=== PATIENT | female | born 1975 | race Caucasian/White ===

== ENCOUNTER 2016-10-07 11:39 | Emergency (ER) | payer OTHER ==
[2016-10-07 12:13] VITALS: BP 164/105; PULSE 82; RESP 17; TEMP 98.7
--- NOTE | 2016-10-07 12:28 | ED ---
ENT HPI - General Chief complaint: ENT Stated complaint: ear infection Time Seen by Provider: 10/07/16 12:16 Source: patient, RN notes reviewed Mode of arrival: ambulatory Limitations: no limitations - History of Present Illness Initial comments: 40-year-old female presents to emergency room chief complaint of left sided facial pain and left ear pain. Patient states that about 3 weeks. Patient states she's had fevers on and off. Patient states she's been some eardrops that did not seem to help. Patient states that she is having a lot of nasal congestion as well. Patient denies any cough. Patient states she was concerned due to the worsening pain in fact that she is acting better home so she thought that she should be evaluated. Patient states that she is not currently having any other symptoms at this time. Patient denies any recent shortness of breath, chest pain, back pain, abdominal pain, nausea vomiting, numbness or tingling, dysuria or hematuria, constipation or diarrhea, visual changes, or any other current symptoms. - Related Data Previous Rx's Medication Instructions Recorded Azithromycin [Zithromax] 250 mg PO DIRECTED #6 tab 10/07/16 Allergies Allergy/AdvReac Type Severity Reaction Status Date / Time latex Allergy Rash/Hives Verified 10/07/16 12:13 bacitracin AdvReac skin falls Verified 10/07/16 12:13 [From Neosporin off ([id number])] neomycin AdvReac skin falls Verified 10/07/16 12:13 [From Neosporin off ([id number])] polymyxin B AdvReac skin falls Verified 10/07/16 12:13 [From Neosporin off ([id number])] Review of Systems ROS Statement: Those systems with pertinent positive or pertinent negative responses have been documented in the HPI. ROS Other: All systems not noted in ROS Statement are negative. Past Medical History Past Medical History: No Reported History History of Any Multi-Drug Resistant Organisms: None Reported Past Surgical History: Section Past Psychological History: No Psychological Hx Reported Smoking Status: Current every day smoker Past Alcohol Use History: None Reported Past Drug Use History: None Reported General Exam - General Exam Comments Initial Comments: General exam: Alert, active, comfortable in no apparent distress Head: Normocephalic, tenderness over the left maxillary sinus. Eyes: Normal reaction of pupils, equal size, normal range of extraocular motion Ears: normal external ear canals, pink tympanic membranes with normal cone of light on the right, patient does appear to have erythematous left tympanic membrane. Nose: clear with pink turbinates Throat: no erythema or exudates with normal sized tonsils Neck: no masses, no nuchal rigidity Chest: no chest wall deformity Lungs: equal air entry with no crackles or wheeze CVS: S1 and S2 normal with no audible mumurs, regular rhythm Abdomen: no hepatosplenomegaly, normal bowel sounds, no guarding or rigidity Spine: no scoliosis or deformity Skin: no rashes Neurological: No focal deficits, tone is normal in all 4 extremities Limitations: no limitations Course Vital Signs 10/07/16 12:09 Temperature 98.7 F Pulse Rate 82 Respiratory 17 Rate Blood Pressure 164/105 O2 Sat by Pulse 96 Oximetry Medical Decision Making - Medical Decision Making [id number] female presents with what appears to be sinusitis and has been greater than 2 weeks that she's been Ald[place] and we will put her on azithromycin. We did discuss care and follow-up. We discussed return parameters. We discussed all the patient's questions were she stated that she understood she is a plan. Patient will be discharged home. Disposition Clinical Impression: Acute sinusitis, Left otitis media Disposition: HOME SELF-CARE Condition: Stable Instructions: Sinusitis (ED) Additional Instructions: Please use medication as discussed. Please follow up with family doctor if symptoms have not improved over the next two days. Please return to the emergency room if your symptoms increase or worsen or for any other concerns. Prescriptions: Azithromycin [Zithromax] 250 mg PO DIRECTED #6 tab Referrals: None,Stated [Primary Care Provider] - 1-2 days Elayne Murrieta MD [STAFF PHYSICIAN] - 1-2 days Time of Disposition: 12:28
== END 2016-10-07 12:40 | disposition home or self-care (01) ==
LOC: EC 11:39
DX: H66.92 Otitis media, unspecified, left ear (principal); J01.90 Acute sinusitis, unspecified; Z88.1 Allergy status to other antibiotic agents; Z91.040 Latex allergy status; F17.200 Nicotine dependence, unspecified, uncomplicated
CPT/HCPCS: 99282

== ENCOUNTER 2017-03-08 13:54 | Emergency (ER) | payer OTHER ==
[2017-03-08 13:59] VITALS: RESP 18
--- NOTE | 2017-03-08 14:20 | ED ---
General Adult HPI - General Chief complaint: Back Pain/Injury Stated complaint: rib and back pain Time Seen by Provider: 03/08/17 14:07 Source: patient Mode of arrival: ambulatory Limitations: no limitations - History of Present Illness Initial comments: 41-year-old female presents with a right-sided rib chest discomfort along with right upper quadrant abdominal pain ongoing for the last month. Patient states she overdosed and had CPR performed on her which caused some rib discomfort. Patient states she's had these checked out there were no fractures. Patient states it hurts to breathe and move and cough. Patient states she is coughing up phlegm and does feel some congestion in her chest. Patient was given an inhaler and steroid injection yesterday. Patient states she still has her gallbladder. She didn't states she is nauseous but no vomiting. No change of bowel habits. Patient does admit to having hepatitis C. No recorded fevers. Patient states it does hurt to take a deep breath as well. Patient denies any rashes bruising or swelling. No new injury. No chest pain or shortness of breath. - Related Data Home Medications Medication Instructions Recorded Confirmed Gabapentin [Neurontin] 800 mg PO TID 03/08/17 03/08/17 Levothyroxine Sodium [Synthroid] 300 mcg PO DAILY 03/08/17 03/08/17 Lurasidone [Latuda] 40 mg PO DAILY 03/08/17 03/08/17 PARoxetine HCL [Paxil] 40 mg PO DAILY 03/08/17 03/08/17 traZODone HCL 150 mg PO HS 03/08/17 03/08/17 Previous Rx's Medication Instructions Recorded Ibuprofen 800 mg PO Q8HR PRN #30 tablet 03/08/17 Allergies Allergy/AdvReac Type Severity Reaction Status Date / Time amoxicillin Allergy Unknown Verified 03/08/17 14:46 latex Allergy Rash/Hives Verified 03/08/17 14:46 bacitracin AdvReac skin falls Verified 03/08/17 14:46 [From Neosporin off ([id number])] neomycin AdvReac skin falls Verified 03/08/17 14:46 [From Neosporin off ([id number])] polymyxin B AdvReac skin falls Verified 03/08/17 14:46 [From Neosporin off ([id number])] Review of Systems ROS Statement: Those systems with pertinent positive or pertinent negative responses have been documented in the HPI. ROS Other: All systems not noted in ROS Statement are negative. Constitutional: Denies: fever Respiratory: Reports: cough Gastrointestinal: Reports: abdominal pain, nausea Musculoskeletal: Reports: other (Right-sided rib pain) Past Medical History Past Medical History: No Reported History History of Any Multi-Drug Resistant Organisms: None Reported Past Surgical History: Section, Tonsillectomy Additional Past Surgical History / Comment(s): nasal surgery Past Psychological History: No Psychological Hx Reported Smoking Status: Current every day smoker Past Alcohol Use History: None Reported Past Drug Use History: Heroin General Exam Limitations: no limitations General appearance: alert Eye exam: Present: normal appearance, PERRL, EOMI. Absent: scleral icterus, conjunctival injection, periorbital swelling ENT exam: Present: normal exam, mucous membranes moist Neck exam: Present: normal inspection. Absent: tenderness, meningismus, lymphadenopathy Respiratory exam: Present: normal lung sounds bilaterally, chest wall tenderness (right sided rib, lateral and ant). Absent: respiratory distress, wheezes, rales, rhonchi, stridor Cardiovascular Exam: Present: regular rate, normal rhythm, normal heart sounds. Absent: systolic murmur, diastolic murmur, rubs, gallop, clicks GI/Abdominal exam: Present: soft, tenderness (RUQ and epigastric , + murphys), normal bowel sounds. Absent: distended, guarding, rebound, rigid Back exam: Present: normal inspection, tenderness (right posterior rib) Course Vital Signs 03/08/17 03/08/17 03/08/17 13:56 14:08 15:12 Temperature 97.7 F 97.7 F Pulse Rate 111 H 94 Respiratory 18 18 18 Rate Blood Pressure 126/78 120/63 O2 Sat by Pulse 100 99 Oximetry 03/08/17 16:24 Temperature 98.3 F Pulse Rate 80 Respiratory 18 Rate Blood Pressure 158/93 O2 Sat by Pulse 97 Oximetry Medical Decision Making - Medical Decision Making Reviewed x-ray and ultrasound. Fractures noted on the right rib fractures patient aware. Short-term follow-up with family doctor in regards to her ultrasound findings. Patient aware of results. Patient to return sooner if any problems. Patient take [id number] ibuprofen continue with inhaler for cough and congestion. - Lab Data Result diagrams: 03/08/17 14:30 03/08/17 14:30 Lab Results 03/08/17 03/08/17 03/08/17 Range/Units 14:30 14:30 14:30 WBC 19.9 H (3.8-10.6) k/uL RBC 3.86 (3.80-5.40) m/uL Hgb 11.7 (11.4-16.0) gm/dL Hct 33.2 L (34.0-46.0) % MCV 86.0 (80.0-100.0) fL MCH 30.5 (25.0-35.0) pg MCHC 35.4 (31.0-37.0) g/dL RDW 13.3 (11.5-15.5) % Plt Count 408 (150-450) k/uL Neutrophils % 72 % Lymphocytes % 17 % Monocytes % 8 % Eosinophils % 1 % Basophils % 0 % Neutrophils # 14.3 H (1.3-7.7) k/uL Lymphocytes # 3.4 (1.0-4.8) k/uL Monocytes # 1.6 H (0-1.0) k/uL Eosinophils # 0.1 (0-0.7) k/uL Basophils # 0.1 (0-0.2) k/uL Sodium 141 (137-145) mmol/L Potassium 4.6 (3.5-5.1) mmol/L Chloride 107 (98-107) mmol/L Carbon Dioxide 22 (22-30) mmol/L Anion Gap 12 mmol/L BUN 22 H (7-17) mg/dL Creatinine 0.80 (0.52-1.04) mg/dL Est GFR (MDRD) Af Amer >60 (>60 ml/min/1.73 sqM) Est GFR (MDRD) Non-Af >60 (>60 ml/min/1.73 sqM) Glucose 101 H (74-99) mg/dL Plasma Lactic Acid Joni 1.3 (0.7-2.0) mmol/L Calcium 9.7 (8.4-10.2) mg/dL Total Bilirubin 0.4 (0.2-1.3) mg/dL AST 44 H (14-36) U/L ALT 68 H (9-52) U/L Alkaline Phosphatase 111 (38-126) U/L Ammonia <9 (<30) umol/L Total Protein 7.3 (6.3-8.2) g/dL Albumin 4.1 (3.5-5.0) g/dL Amylase 41 (30-110) U/L Lipase 45 (23-300) U/L Urine Color Urine Appearance (Clear) Urine pH (5.0-8.0) Ur Specific [place] (1.001-1.035) Urine Protein (Negative) Urine Glucose (UA) (Negative) Urine Ketones (Negative) Urine Blood (Negative) Urine Nitrite (Negative) Urine Bilirubin (Negative) Urine Urobilinogen (<2.0) mg/dL Ur Leukocyte Esterase (Negative) Urine RBC (0-5) /hpf Urine WBC (0-5) /hpf Ur Squamous Epith Cells (0-4) /hpf Urine Bacteria (None) /hpf Urine Mucus (None) /hpf Urine HCG, Qual (Not Detectd) 03/08/17 03/08/17 Range/Units 14:50 14:50 WBC (3.8-10.6) k/uL RBC (3.80-5.40) m/uL Hgb (11.4-16.0) gm/dL Hct (34.0-46.0) % MCV (80.0-100.0) fL MCH (25.0-35.0) pg MCHC (31.0-37.0) g/dL RDW (11.5-15.5) % Plt Count (150-450) k/uL Neutrophils % % Lymphocytes % % Monocytes % % Eosinophils % % Basophils % % Neutrophils # (1.3-7.7) k/uL Lymphocytes # (1.0-4.8) k/uL Monocytes # (0-1.0) k/uL Eosinophils # (0-0.7) k/uL Basophils # (0-0.2) k/uL Sodium (137-145) mmol/L Potassium (3.5-5.1) mmol/L Chloride (98-107) mmol/L Carbon Dioxide (22-30) mmol/L Anion Gap mmol/L BUN (7-17) mg/dL Creatinine (0.52-1.04) mg/dL Est GFR (MDRD) Af Amer (>60 ml/min/1.73 sqM) Est GFR (MDRD) Non-Af (>60 ml/min/1.73 sqM) Glucose (74-99) mg/dL Plasma Lactic Acid Joni (0.7-2.0) mmol/L Calcium (8.4-10.2) mg/dL Total Bilirubin (0.2-1.3) mg/dL AST (14-36) U/L ALT (9-52) U/L Alkaline Phosphatase (38-126) U/L Ammonia (<30) umol/L Total Protein (6.3-8.2) g/dL Albumin (3.5-5.0) g/dL Amylase (30-110) U/L Lipase (23-300) U/L Urine Color Yellow Urine Appearance Cloudy H (Clear) Urine pH 6.0 (5.0-8.0) Ur Specific [place] 1.022 (1.001-1.035) Urine Protein Trace H (Negative) Urine Glucose (UA) Negative (Negative) Urine Ketones Negative (Negative) Urine Blood Negative (Negative) Urine Nitrite Negative (Negative) Urine Bilirubin Negative (Negative) Urine Urobilinogen <2.0 (<2.0) mg/dL Ur Leukocyte Esterase Negative (Negative) Urine RBC 3 (0-5) /hpf Urine WBC 1 (0-5) /hpf Ur Squamous Epith Cells 3 (0-4) /hpf Urine Bacteria Occasional H (None) /hpf Urine Mucus Rare H (None) /hpf Urine HCG, Qual Not Detected (Not Detectd) Disposition Clinical Impression: Rib fractures, Abdominal pain Disposition: HOME SELF-CARE Condition: Good Instructions: Abdominal Pain (ED), Rib Fracture (ED) Prescriptions: Ibuprofen 800 mg PO Q8HR PRN #30 tablet PRN Reason: Pain Referrals: None,Stated [Primary Care Provider] - 1-2 days Bernardo Duron MD [REFERRING] - 1-2 days Time of Disposition: 17:24
[2017-03-08 14:47] LABS: Basophils # (A) 0.1 k/uL (0-0.2); Basophils % (A) 0 %; CHCM 35.1; Eosinophils # (A) 0.1 k/uL (0-0.7); Eosinophils % (A) 1 %; HCT 33.2 % (34.0-46.0); HDW 2.85; HGB 11.7 gm/dL (11.4-16.0); Luc # (Auto) 0.42; Luc % (Auto) 2; Lymphocytes # (A) 3.4 k/uL (1.0-4.8); Lymphocytes % (A) 17 %; MCH 30.5 pg (25.0-35.0); MCHC 35.4 g/dL (31.0-37.0); Mean Platelet Volume 6.7; Monocytes # (A) 1.6 k/uL (0-1.0); Monocytes % (A) 8 %; Neutrophils # (A) 14.3 k/uL (1.3-7.7); Neutrophils % (A) 72 %; RBC 3.86 m/uL (3.80-5.40); RDW 13.3 % (11.5-15.5); WBC 19.9 k/uL (3.8-10.6); WBC (Perox) 20.44
[2017-03-08 14:59] LABS: ALT 68 U/L (9-52); AST 44 U/L (14-36); Alkaline Phosphatase 111 U/L (38-126); Amylase 41 U/L (30-110); Anion Gap 12 mmol/L; Blood Urea Nitrogen 22 mg/dL (7-17); Calcium 9.7 mg/dL (8.4-10.2); Carbon Dioxide 22 mmol/L (22-30); Chloride 107 mmol/L (98-107); Glucose 101 mg/dL (74-99); Non-African American GFR(MDRD) >60 (>60 ml/min/1.73 sqM); Potassium 4.6 mmol/L (3.5-5.1); Sodium 141 mmol/L (137-145); Total Bilirubin 0.4 mg/dL (0.2-1.3); Total Protein 7.3 g/dL (6.3-8.2)
[2017-03-08 15:01] LABS: Ammonia <9 umol/L (<30)
[2017-03-08 15:01] LABS: Appearance,Urine Cloudy (Clear); Bacteria,Urine Occasional /hpf; Bilirubin,Urine Negative (Negative); Glucose,Urine (UA) Negative (Negative); Ketones,Urine Negative (Negative); Leukocyte Esterase,Urine Negative (Negative); Mucus,Urine Rare /hpf; Nitrite,Urine Negative (Negative); Particle Count 4234; Protein,Urine Trace (Negative); RBC,Urine 3 /hpf (0-5); Specific Gravity,Urine 1.022 (1.001-1.035); Squamous Epithelial Cell,Urine 3 /hpf (0-4); UA Billing (MACRO vs. MICRO) MICRO; Urobilinogen,Urine <2.0 mg/dL (<2.0); WBC,Urine 1 /hpf (0-5)
[2017-03-08] MEDS ORDERED: ACETAMINOPHEN TAB 500 MG TAB PO STA (15:16)
--- NOTE | 2017-03-08 16:17 | XR ---
EXAMINATION TYPE: PA chest and right rib series DATE OF EXAM: 03/08/2017 COMPARISON: NONE HISTORY: 41-year-old female with right sided rib pain, CPR performed on 01/03/2017. FINDINGS: Heart is upper limits of normal in size. Mild diffuse interstitial prominence has a chronic appearanc e. No consolidation, pneumothorax, or pleural effusion. There is minimal angulation along the right lateral ninth rib and some mild callus seen along the rig ht lateral eighth rib. IMPRESSION: Subacute fractures of the right lateral eighth and ninth ribs. Chest shows chronic appearing changes without definite acute process.
--- NOTE | 2017-03-08 17:08 | US ---
EXAMINATION TYPE: US abdomen limited DATE OF EXAM: 03/08/2017 COMPARISON: NONE CLINICAL HISTORY: 41-year-old female with Pain. EC patient with epigastric and RUQ pain since CPR com pressions performed on her January 05, 2017. HX of Hep C. Patient stated has been NPO > 8 hours. TECHNIQUE: Multiple sonographic images of the right upper quadrant are obtained. FINDINGS: EXAM MEASUREMENTS: Liver Length: 19.4 cm Gallbladder Wall: contracted CBD: 0.4 cm Right Kidney: 9.8 x 6.2 x 3.8 cm Pancreas: Suboptimal visualization of the pancreatic tail. Visualized portions show no gross abnorma lity. Liver: Enlarged ovary with overall homogeneous echotexture. No focal lesion seen. Gallbladder: contracted gallbladder in fasting state Evidence for sonographic Nelson's sign: Yes CBD: wnl Right Kidney: No hydronephrosis IMPRESSION: 1. The senior librarian indicates that the patient has been fasting. However, the gallbladder is contracte d. Consider short interval follow-up. 2. Sonographic Nelson sign is reportedly positive. This may the secondary to referred pain such as fr om the rib fractures seen on patient's radiographs. Clinically correlate. Again, follow-up to reasses s the gallbladder is indicated. 3. Hepatomegaly.
[2017-03-08 17:40] VITALS: BP 129/64; PULSE 82; TEMP 97.3
== END 2017-03-08 17:46 | disposition home or self-care (01) ==
LOC: EC 13:54
DX: S22.41XA Multiple fractures of ribs, right side, initial encounter for closed fracture (principal); R10.13 Epigastric pain; R10.11 Right upper quadrant pain; R05 Cough; R09.89 Other specified symptoms and signs involving the circulatory and respiratory systems; F17.200 Nicotine dependence, unspecified, uncomplicated; Z79.899 Other long term (current) drug therapy; Z88.0 Allergy status to penicillin; Z88.1 Allergy status to other antibiotic agents; Z91.040 Latex allergy status; Z90.89 Acquired absence of other organs; Z98.890 Other specified postprocedural states; X58.XXXA Exposure to other specified factors, initial encounter
CPT/HCPCS: 36415; 76705; 80053; 81001; 81025; 82140; 82150; 83605; 83690; 85025; 99284

== ENCOUNTER 2017-04-07 01:14 | Emergency (ER) | payer OTHER ==
[2017-04-07] MEDS ORDERED: RX INFO: IV CONTRAST WAS GIVEN 1 EACH MISC MISCELLANE PRN (01:22)
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
[2017-04-07 02:15] LABS: Appearance,Urine Cloudy (Clear); Bacteria,Urine Many /hpf; Basophils % (A) 0 %; Bilirubin,Urine Negative (Negative); CH 30.3; CHCM 34.4; Eosinophils # (A) 0.5 k/uL (0-0.7); Eosinophils % (A) 6 %; Glucose,Urine (UA) Negative (Negative); HCT 37.1 % (34.0-46.0); HDW 2.71; HGB 12.2 gm/dL (11.4-16.0); Ketones,Urine Negative (Negative); Leukocyte Esterase,Urine Small (Negative); Luc # (Auto) 0.19; Luc % (Auto) 2; Lymphocytes # (A) 1.8 k/uL (1.0-4.8); Lymphocytes % (A) 21 %; MCH 29.2 pg (25.0-35.0); MCV 88.5 fL (80.0-100.0); Mean Platelet Volume 7.5; Monocytes # (A) 0.6 k/uL (0-1.0); Monocytes % (A) 7 %; Mucus,Urine Many /hpf; Neutrophils # (A) 5.4 k/uL (1.3-7.7); Neutrophils % (A) 64 %; Nitrite,Urine Negative (Negative); PH, Urine 5.5 (5.0-8.0); Particle Count 13992; Protein,Urine 1+ (Negative); RBC 4.19 m/uL (3.80-5.40); RBC,Urine 4 /hpf (0-5); RDW 14.3 % (11.5-15.5); Specific Gravity,Urine 1.029 (1.001-1.035); Squamous Epithelial Cell,Urine 11 /hpf (0-4); UA Billing (MACRO vs. MICRO) MICRO; WBC 8.5 k/uL (3.8-10.6); WBC (Perox) 8.88; WBC,Urine 19 /hpf (0-5)
[2017-04-07 02:20] LABS: ALT 33 U/L (9-52); AST 26 U/L (14-36); Alcohol <10 mg/dL; Alkaline Phosphatase 101 U/L (38-126); Anion Gap 9 mmol/L; Blood Urea Nitrogen 23 mg/dL (7-17); Calcium 9.5 mg/dL (8.4-10.2); Carbon Dioxide 24 mmol/L (22-30); Chloride 108 mmol/L (98-107); Glucose 99 mg/dL (74-99); Non-African American GFR(MDRD) >60 (>60 ml/min/1.73 sqM); Potassium 3.9 mmol/L (3.5-5.1); Sodium 141 mmol/L (137-145); Total Bilirubin 0.3 mg/dL (0.2-1.3); Total Protein 7.1 g/dL (6.3-8.2)
[2017-04-07 02:30] LABS: Creatine Kinase 177 U/L (30-135)
[2017-04-07 02:42] LABS: INR 0.9 (<1.2); Prothrombin Time 9.5 sec (9.0-12.0)
[2017-04-07 02:43] LABS: Creatine Kinase MB 1.8 ng/mL (0.0-2.4); Troponin I <0.012 ng/mL (0.000-0.034)
[2017-04-07 02:56] LABS: Partial Thromboplastin Time 20.6 sec (22.0-30.0)
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
--- NOTE | 2017-04-07 03:44 | CT ---
EXAM: CT Chest With Intravenous Contrast CLINICAL HISTORY: Reason: trauma TECHNIQUE: Axial computed tomography images of the chest with intravenous contrast. CTDI is 11.7 mGy and DLP is 745.9 mGy-cm. This CT exam was performed using one or more of the following dose reduction techniques: automated exposure control, adjustment of the mA and/or kV according to patient size, and/or use of iterative reconstruction technique. Coronal and sagittal reformatted images were created and reviewed. COMPARISON: No relevant prior studies available. FINDINGS: Lungs: 5 mm pulmonary nodule in the lateral aspect of left lower lobe, image 33 series 4. Pleural space: Unremarkable. No pneumothorax. No significant effusion. Heart: Unremarkable. No cardiomegaly. No significant pericardial effusion. Mediastinum: Mild soft tissue in the anterior aspect of the upper mediastinum likely represents some residual thymus tissue . Mediastinal contusion considered unlikely differential possibility. No evidence of thoracic aortic aneurysm or dissection. No evidence of thoracic aortic vascular injury. Bones/joints: Rib fractures with adjacent callus formation involving the right sixth and seventh ribs as well as the left sixth rib. The eighth and ninth right lateral ribs also are fractured with less evident callus formation though given position, these all are likely related to the same previous injury. No definite acute rib fracture. No evidence of thoracic vertebral compression fracture. No definite acute thoracic bony abnormalities. Soft tissues: Unremarkable. Vasculature: Unremarkable. No thoracic aortic aneurysm. Lymph nodes: Unremarkable. No enlarged lymph nodes. IMPRESSION: No definitive evidence of acute cardiopulmonary process or traumatic intrathoracic injury identified. Mild soft tissue attenuation in the upper anterior mediastinum most suggestive of residual thymus. Old bilateral rib fractures. Left lower lobe pulmonary nodule measuring 5 mm.. Short-term CT chest follow-up recommended as per Fleischner protocol. EXAM: CT Abdomen and Pelvis With Intravenous Contrast CLINICAL HISTORY: Reason: trauma TECHNIQUE: Axial computed tomography images of the abdomen and pelvis with intravenous contrast. CTDI is 11.7 mGy and DLP is 745.9 mGy-cm. This CT exam was performed using one or more of the following dose reduction techniques: automated exposure control, adjustment of the mA and/or kV according to patient size, and/or use of iterative reconstruction technique. Coronal and sagittal reformatted images were created and reviewed. COMPARISON: No relevant prior studies available. FINDINGS: Lower thorax: No acute findings. ABDOMEN: Liver: Unremarkable. No mass. Gallbladder and bile ducts: Unremarkable. No calcified stones. No ductal dilation. Pancreas: Unremarkable. No mass. No ductal dilation. Spleen: Unremarkable. No splenomegaly. Adrenals: Unremarkable. No mass. Kidneys and ureters: Unremarkable. No solid mass. No hydronephrosis. Stomach and bowel: Unremarkable. No evidence of bowel obstruction. Appendix: No findings to suggest acute appendicitis. PELVIS: Bladder: Unremarkable. No mass. Reproductive: Unremarkable as visualized. ABDOMEN and PELVIS: Intraperitoneal space: Unremarkable. No free air. No significant fluid collection. Bones/joints: Mild grade 1 anterolisthesis L5 on S1. No acute fracture. No dislocation. Soft tissues: Unremarkable. Vasculature: Unremarkable. No abdominal aortic aneurysm. Lymph nodes: Unremarkable. No enlarged lymph nodes. IMPRESSION: No evidence of acute traumatic injury of the abdomen or pelvis. No evidence of visceral organ injury or hemoperitoneum.
--- NOTE | 2017-04-07 03:52 | CT ---
EXAM: CT Maxillofacial Without Intravenous Contrast CLINICAL HISTORY: trauma TECHNIQUE: Axial computed tomography images of the face without intravenous contrast. CTDI is 30.6 mGy and DLP is 593.6 mGy-cm. This CT exam was performed using one or more of the following dose reduction techniques: automated exposure control, adjustment of the mA and/or kV according to patient size, and/or use of iterative reconstruction technique. COMPARISON: No relevant prior studies available. FINDINGS: Bones/joints: No evidence of acute facial or orbital fracture. Soft tissues: Facial soft tissues are unremarkable. Orbits: Globes and orbital structures are unremarkable. Sinuses: Mild mucosal thickening involving the ethmoid and sphenoid sinuses as well as [id number] mucosal thickening in the maxillary sinuses. No sinus fluid identified. IMPRESSION: No evidence of acute facial fracture. Paranasal sinus disease.
[2017-04-07 06:05] VITALS: BP 138/78; PULSE 93; RESP 17; TEMP 98.4
== END 2017-04-07 06:05 | disposition home or self-care (01) ==
LOC: EC 01:14
DX: S01.511A Laceration without foreign body of lip, initial encounter (principal); R10.11 Right upper quadrant pain; R40.2412 Glasgow coma scale score 13-15, at arrival to emergency department; F17.200 Nicotine dependence, unspecified, uncomplicated; Z79.899 Other long term (current) drug therapy; Z88.0 Allergy status to penicillin; Z88.1 Allergy status to other antibiotic agents; Z91.040 Latex allergy status; Y04.8XXA Assault by other bodily force, initial encounter; Y92.009 Unspecified place in unspecified non-institutional (private) residence as the place of occurrence of the external cause; Y07.01 Husband, perpetrator of maltreatment and neglect
CPT/HCPCS: 99285; 82075; 36415; 93005; 86900; 86901; 80053; 82550; 82553; 84484; 85025; 85610; 85730; 86850; 81001; 80306; 80320; 72125; 70486; 70450; 71260; 74177; Q9967

== ENCOUNTER 2017-05-04 09:18 | Inpatient (IN) | payer MEDICAID, OTHER ==
[2017-05-04] MEDS ORDERED: MAG HYDROX/AL HYDROX/SIMETH 30 ML CUP PO PRN (14:34)
[2017-05-04] MEDS ORDERED: ZIPRASIDONE 20 MG VIAL IM PRN (14:34)
[2017-05-04] MEDS: NICOTINE 14MG/24HR PATCH TRANSDERM SCH (16:26)
[2017-05-04] MEDS: LORazepam 1 MG TAB PO PRN (20:16)
[2017-05-04] MEDS: ACETAMINOPHEN TAB 325 MG TAB PO PRN (20:16)
[2017-05-04] MEDS: traZODone HCL 50 MG TAB PO SCH (21:02)
[2017-05-04] MEDS: IBUPROFEN 800 MG TAB PO SCH (21:02)
[2017-05-05] MEDS: LORazepam 1 MG TAB PO PRN (10:00)
[2017-05-05] MEDS: NICOTINE 14MG/24HR PATCH TRANSDERM SCH (10:00)
[2017-05-05] MEDS: IBUPROFEN 800 MG TAB PO SCH ×3 (10:00→21:03)
[2017-05-05] MEDS: OXcarbazepine 150 MG TAB PO SCH ×2 (12:24→21:03)
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
--- NOTE | 2017-05-05 16:42 | P.CONS ---
History of Present Illness - Reason for Consult Consult date: 05/05/17 Medical history and physical - History of Present Illness This is a 41-year-old female that comes in to the hospital from another facility after a suicide attempt with the drug overdose. 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 Patient has been on a large dose of Synthroid. Patient states that she has not been compliant with her medication I suspect the medication dose of increased due to that reason. Today patient's TSH is close to 34 Patient states that she is hopeless has cold intolerance has gained a lot of weight. Denies having any headaches change in vision chest pain difficulty in breathing abdominal pain urinary urgency or frequency or diarrhea Patient is also on methimazole upon review of her medications and on Synthroid which would ideally not be done after an iodine ablative therapy At this time patient states that she is sleepy and does not want to give me any additional information Review of systems 14 point review of systems was done nonpertinent then all as mentioned above Home medications were reviewed Physical exam Gen. appearance oriented 3 in no distress Neck is supple no JVD Lungs good air entry clear to auscultation no rhonchi or wheezing Heart S1-S2 heard regular rate and rhythm no murmurs appreciated Abdomen is soft nontender no organomegaly bowel sounds are intact Neurologically cranial nerves II-12 grossly intact no focal motor or sensory deficits noted No dysdiadochokinesia noted is able to follow two-step commands Skin no abnormalities appreciated Assessment and plan #1 history of Graves' disease currently is hypothyroid. #2 major depression with suicidal attempt. #3 polysubstance use #4 history of hypertension #5 peripheral neuropathy Plan I suspect the patient was not compliant with her medication 300 g of Synthroid is extremely high. We'll obtain a T4 level as patient was somehow on methimazole as well this would also explain her elevated TSH as this would hold the conversion of T4 to T3 which is active form. Hence we'll start the patient on 100 g for her body weight Thank you for the consultation please call with any questions will review the T4 level No further workup is needed from a medicine perspective. Past Medical History Past Medical History: No Reported History, Thyroid Disorder History of Any Multi-Drug Resistant Organisms: None Reported Past Surgical History: Section, Tonsillectomy Additional Past Surgical History / Comment(s): nasal surgery Past Psychological History: No Psychological Hx Reported Smoking Status: Current every day smoker Past Alcohol Use History: None Reported Past Drug Use History: Cocaine, Heroin Medications and Allergies Home Medications Medication Instructions Recorded Confirmed Type Gabapentin [Neurontin] 800 mg PO TID 03/08/17 05/04/17 History Levothyroxine Sodium [Synthroid] 300 mcg PO DAILY 03/08/17 05/04/17 History PARoxetine HCL [Paxil] 40 mg PO DAILY 03/08/17 05/04/17 History traZODone HCL 150 mg PO HS 03/08/17 05/04/17 History Albuterol Inhaler [Ventolin Hfa 1 - 2 puff INHALATION RT-[id number] PRN 05/04/17 History Inhaler] Atorvastatin Calcium [Lipitor] 10 mg PO DAILY 05/04/17 05/04/17 History Benztropine Mesylate [Cogentin] 1 mg PO BID 05/04/17 05/04/17 History Lurasidone [Latuda] 80 mg PO HS 05/04/17 05/04/17 History Methimazole [Tapazole] 5 mg PO TID 05/04/17 05/04/17 History Omeprazole [PriLOSEC] 20 mg PO DAILY 05/04/17 05/04/17 History Allergies Allergy/AdvReac Type Severity Reaction Status Date / Time amoxicillin Allergy Unknown Verified 05/04/17 13:20 latex Allergy Rash/Hives Verified 05/04/17 13:20 naproxen Allergy Unknown Verified 05/04/17 13:20 Penicillins Allergy Unknown Verified 05/04/17 13:20 bacitracin AdvReac skin falls Verified 03/08/17 14:46 [From Neosporin off ([id number])] neomycin AdvReac skin falls Verified 03/08/17 14:46 [From Neosporin off ([id number])] polymyxin B AdvReac skin falls Verified 03/08/17 14:46 [From Neosporin off ([id number])] Physical Exam Vitals: Vital Signs Temp Pulse Resp BP 05/05/17 07:05 97.7 F 60 16 114/73 Results Labs: Abnormal Lab Results - Last 24 Hours (Table) 05/05/17 Range/Units 08:18 TSH 34.000 H (0.465-4.680) mIU/L
[2017-05-05] MEDS: GABAPENTIN 400 MG CAP PO SCH ×2 (16:47→21:05)
[2017-05-05] MEDS: traZODone HCL 50 MG TAB PO SCH (21:04)
[2017-05-05] MEDS: PARoxetine 20 MG TAB PO SCH (21:05)
[2017-05-06] MEDS: LEVOTHYROXINE 100 MCG TAB PO SCH (05:40)
[2017-05-06] MEDS: NICOTINE 14MG/24HR PATCH TRANSDERM SCH (08:34)
[2017-05-06] MEDS: GABAPENTIN 400 MG CAP PO SCH ×3 (08:35→21:07)
[2017-05-06] MEDS: OXcarbazepine 150 MG TAB PO SCH ×2 (08:35→21:07)
[2017-05-06] MEDS: IBUPROFEN 800 MG TAB PO SCH ×3 (08:35→21:07)
[2017-05-06] MEDS: ACETAMINOPHEN TAB 325 MG TAB PO PRN ×2 (10:25→18:44)
[2017-05-06] MEDS: LORazepam 1 MG TAB PO PRN ×2 (10:25→18:44)
--- NOTE | 2017-05-06 11:28 | P.PN ---
Progress Note - Text Interval history: The patient is found in her room she follows me to an interview room. She reports her mood continues to be depressed she continues to have hopeless thoughts. She has not attended groups this morning but is willing to attend the group in [facility] following our discussion. We reviewed her medications. We decided to initiate Trileptal as a mood stabilizer as she did not wish to pursue use of Latuda any further. She has been seen by internal medicine and was started on Synthroid. The patient states that she has no support and feels alone. She is only able to identify her outpatient community mental health therapist as a support. Mental status exam: The patient is a female appearing her stated age she is dressed in her own clothing. The sides of her head are shaved with the hair on the top of her head pulled back. Eye contact is intermittent she is quiet and soft-spoken. She endorses a depressed mood with hopelessness thoughts she presented with suicidal ideations prior to this admission. No homicidal ideation intent or plan. She endorses no auditory or visual hallucinations or specific delusions. There is no evidence of psychosis. She does not appear hypomanic or manic. She demonstrates no tangential thinking loose associations or flight of ideas. No abnormal involuntary movements. She demonstrates no verbal or physical aggressiveness. She is oriented to person place month and year. Affect is bland to blunted. Plan: The patient's will continue on her current medications we will likely titrate the Trileptal further tomorrow. We discussed the efficacy of Paxil in the past. It is possible that medication will need to be changed in the outpatient setting. We discussed some opportunities for cognitive reframing. We will continue to monitor her for safety and encourage her full participation in the milieu.
[2017-05-06] MEDS: MAGNESIUM HYDROXIDE 2,400 MG/10 ML CUP PO PRN (15:21)
[2017-05-06] MEDS: PARoxetine 20 MG TAB PO SCH (21:07)
[2017-05-06] MEDS: traZODone HCL 50 MG TAB PO SCH (21:07)
[2017-05-07] MEDS: LEVOTHYROXINE 100 MCG TAB PO SCH (06:38)
[2017-05-07] MEDS: NICOTINE 14MG/24HR PATCH TRANSDERM SCH (08:52)
[2017-05-07] MEDS: ACETAMINOPHEN TAB 325 MG TAB PO PRN (08:52)
[2017-05-07] MEDS: IBUPROFEN 800 MG TAB PO SCH ×3 (08:52→21:42)
[2017-05-07] MEDS: LORazepam 1 MG TAB PO PRN ×2 (08:53→16:36)
[2017-05-07] MEDS: GABAPENTIN 400 MG CAP PO SCH ×3 (08:53→21:42)
[2017-05-07] MEDS: OXcarbazepine 150 MG TAB PO SCH (08:53)
--- NOTE | 2017-05-07 09:44 | P.PN ---
Progress Note - Text Interval history: The patient is found in the [facility] she follows me to an interview room. She reports that her mood continues to be depressed she states she has no one and has no support. She continues to have hopelessness thinking with passive suicidal thoughts. She states she frequently has a thought such as "I wish I was ". We discussed discharge planning for when she is stable. She plans on trying to return to the intermediate. She has been attending groups today. She reports appetite is stable she slept 7 hours last evening per her report. We discussed titrating the Trileptal further and she is agreeable. Mental status exam: The patient is an overweight female she seated calmly in the chair eye contact is appropriate she is mildly disheveled she is dressed in her own clothing. Speech is fluent mainly reactive to questions asked. Mood is depressed she has hopelessness thinking with continued suicidal ideation. No homicidal ideation or symptoms of psychosis reported. She demonstrates no verbal or physical aggressiveness. Affect is dysphoric appearing. She demonstrates no verbal or physical aggressiveness. She continues to be oriented to person place and date. Insight and judgment limited. She does not appear hypomanic or manic, there is no tangential thinking loose associations or flight of ideas. Plan: The patient's will continue on the Trileptal however we will titrate to 300 mg twice daily. She will continue on her other psychotropics we will consider changing her antidepressant if needed. She is encouraged to continue complying with groups. She requires continued psychiatric hospitalization for ongoing feelings of hopelessness and suicidal ideation. Vital signs reviewed.
[2017-05-07] MEDS: PARoxetine 20 MG TAB PO SCH (21:42)
[2017-05-07] MEDS: traZODone HCL 50 MG TAB PO SCH (21:42)
[2017-05-07] MEDS: OXcarbazepine 300 MG TAB PO SCH (21:47)
[2017-05-08] MEDS: LEVOTHYROXINE 100 MCG TAB PO SCH (06:40)
[2017-05-08] MEDS: NICOTINE 14MG/24HR PATCH TRANSDERM SCH (08:10)
[2017-05-08] MEDS: GABAPENTIN 400 MG CAP PO SCH ×3 (08:10→21:02)
[2017-05-08] MEDS: OXcarbazepine 300 MG TAB PO SCH ×2 (08:11→21:02)
[2017-05-08] MEDS: IBUPROFEN 800 MG TAB PO SCH ×3 (08:11→21:01)
[2017-05-08] MEDS: LORazepam 1 MG TAB PO PRN ×3 (08:12→21:02)
[2017-05-08] MEDS: ACETAMINOPHEN TAB 325 MG TAB PO PRN (08:13)
--- NOTE | 2017-05-08 09:15 | P.PN ---
Progress Note - Text Interval history: The patient is found in the hallway she follows me to an interview room. She reports continued feelings of depression with hopelessness thinking. She continues to lack a desire to live and has suicidal thoughts. She states she is going to groups but is just "going through the motions". She continues to lack support and has had no contact with anyone outside of the hospital she reports. We reviewed her medications. She has no questions or concerns regarding Trileptal as a mood stabilizer. She spontaneously states that the Paxil has not been helping and is interested in looking at alternatives. We reviewed the extensive list of medication she has been on the past for depression. She felt that the Effexor probably was most helpful we discussed utilizing Pristiq and she was agreeable. Mental status exam: The patient is an overweight female she seated calmly she has a mildly disheveled appearance hygiene is adequate. Eye contact is appropriate speech is slow spontaneous fluent. She endorses a depressed and hopeless mood with ongoing thoughts of suicide. She reports a lack of energy and feels apathetic. Affect is congruent to reported mood is bland she appears dysphoric. She reports no homicidal ideation. She endorses no auditory or visual hallucinations or any specific delusions there is no overt evidence of psychosis. She demonstrates no tangential thinking loose associations or flight of ideas she does not appear hypomanic or manic. She demonstrates no verbal or physical aggressiveness. She demonstrates a mild level of psychomotor slowing. Insight and judgment limited. She remains oriented to person place and date. Plan: Bipolar 1 disorder most recent depressed: We will transition her off of Paxil and we will initiate Pristiq 50 mg starting tomorrow. We discussed the potential benefits and side effects of Pristiq and her questions were answered. She will continue on the Trileptal we will draw a level prior to discharge. She is encouraged to continue participating in groups. Vital signs reviewed. We will continue to monitor for safety. She requires continued hospitalization for her hopeless thinking and suicidal ideation.
[2017-05-08] MEDS: traZODone HCL 50 MG TAB PO SCH (21:02)
[2017-05-08] MEDS: PARoxetine 20 MG TAB PO SCH (21:02)
[2017-05-09] MEDS: LEVOTHYROXINE 100 MCG TAB PO SCH (06:13)
[2017-05-09] MEDS: GABAPENTIN 400 MG CAP PO SCH ×3 (08:30→20:52)
[2017-05-09] MEDS: NICOTINE 14MG/24HR PATCH TRANSDERM SCH (08:30)
[2017-05-09] MEDS: IBUPROFEN 800 MG TAB PO SCH ×3 (08:30→20:53)
[2017-05-09] MEDS: DESVENLAFAXINE SUCCINATE 50 MG TAB.ER.24H PO SCH (08:30)
[2017-05-09] MEDS: OXcarbazepine 300 MG TAB PO SCH ×2 (08:31→20:52)
--- NOTE | 2017-05-09 09:47 | P.PN ---
Progress Note - Text Interval history: The patient is found in [facility] group she follows me to an interview room. She reports that her mood is unchanged she continues to be depressed she continues to have frequent suicidal thoughts. She feels hopeless. She reports feeling "scared to " as to what will happen to her after she is discharged. She continues to convey she has no support outside of the hospital. Sleep is reported as stable as well as appetite. She has been attending most groups she reports. We reviewed her psychotropic medications and her questions were answered she is endorsing no side effects from them. Mental status exam: The patient is an overweight female she seated calmly in her chair she's mildly disheveled hygiene is adequate. She endorses a depressed mood with ongoing suicidal thoughts she has a dysphoric affect. Overall she is cooperative and not particularly engaged in the conversation. She reports no homicidal ideation. There is no report of auditory or visual hallucinations or specific delusions there is no evidence of psychosis. She does not appear hypomanic or manic there is no tangential thinking loose associations or flight of ideas. Insight and judgment limited. She remains oriented to person place and date. No verbal or physical aggressiveness demonstrated Plan: Bipolar disorder most recent depressed: We are transitioning her off of Paxil and Pristiq 50 mg has been initiated today. We will discontinue the Paxil over the next few days. Continue Trileptal is written Trileptal level ordered for Friday morning. Vital signs reviewed no new lab results. She requires continued hospitalization for significant symptoms of depression and suicidal ideation with lack of social support. We will continue to monitor her for safety.
[2017-05-09] MEDS: LORazepam 1 MG TAB PO PRN ×2 (10:33→20:54)
[2017-05-09] MEDS: PARoxetine 20 MG TAB PO SCH (20:52)
[2017-05-09] MEDS: traZODone HCL 50 MG TAB PO SCH (20:52)
[2017-05-09] MEDS ORDERED: cloNIDine HCL 0.1 MG TAB PO STA (22:52)
[2017-05-10] MEDS: LEVOTHYROXINE 100 MCG TAB PO SCH (06:10)
[2017-05-10] MEDS: NICOTINE 14MG/24HR PATCH TRANSDERM SCH (08:25)
[2017-05-10] MEDS: DESVENLAFAXINE SUCCINATE 50 MG TAB.ER.24H PO SCH (08:25)
[2017-05-10] MEDS: IBUPROFEN 800 MG TAB PO SCH ×3 (08:25→21:01)
[2017-05-10] MEDS: GABAPENTIN 400 MG CAP PO SCH ×3 (08:26→21:00)
[2017-05-10] MEDS: OXcarbazepine 300 MG TAB PO SCH ×2 (08:26→21:00)
[2017-05-10] MEDS: LORazepam 1 MG TAB PO PRN ×3 (08:28→23:06)
--- NOTE | 2017-05-10 14:45 | P.PN ---
Progress Note - Text Interval History: Patient is a 41-year-old female who was admitted after taking heroin in an overdose attempt and has a history of bipolar disorder. Patient reports that she continues to feel tired and was napping when I went to get her today. Patient states that she continues to feel depressed and there is been no change in her mood since her admission. She reported that she is eating. She states that she does sleep at night but continues to feel tired during the day. Patient states that she continues to have suicidal ideation and will go to [place] after she is discharged to get drugs and states that she has no plan to act on those thoughts while she is in the hospital. She states she continues to feel this way because she is tired of everything. Mental Status:Appearance/Attitude: Patient is appropriately dressed and makes good eye contact and is cooperative. Behavior: Patient appeared tired but there is no evidence of psychomotor agitation or retardation. Speech/Language: Patient's speech was spontaneous and of normal volume and rhythm and she was coherent. Thought Process: Patient was goal-directed, there is no evidence of circumstantial or tangential thought and no loose associations or flight of ideas. Thought Content: Patient denied any auditory or visual hallucinations, no delusions or paranoid ideation were elicited. Patient continues to report feeling tired, needing to nap during the afternoon and states she sees little improvement in her mood. She reported that she was eating and sleeping well at night. Suicidal/Homicidal Ideation: Patient reports that she continues to have suicidal ideation to go to [place] and get drugs because she is "tired of everything" but has no plans to act on those thoughts at this time she denies any current homicidal ideation. Sensorium/Cognition: Patient is alert and oriented to person, place, and time and her memory is grossly intact. Mood/Affect: Patient's mood remains depressed and her affect is blunted. Insight/Judgement: Patient's insight and judgment are fair. Assessment:Patient reports that she continues to feel depressed with little change in her mood and continues to have plans to get drugs to take an overdose to commit suicide due to feeling tired of everything. Patient states that she is napping during the day and is sleeping and eating at night. She states that she is attending groups and activities. Patient reported no complaints of side effects from the medication.] Plan:Patient has been continued on her trazodone 150 mg at bedtime, Neurontin, Trileptal 300 mg twice a day and was started on Pristiq 50 mg and is being titrated off of her Paxil, I will discontinue her Paxil today. Patient's blood pressures have been running high and so the medical billing coordinator began the patient on Norvasc to control her blood pressures. Patient was encouraged to continue to attend and participate in groups and activities.
[2017-05-10] MEDS: amLODIPine 5 MG TAB PO SCH (15:02)
[2017-05-10] MEDS: traZODone HCL 50 MG TAB PO SCH (21:00)
[2017-05-11] MEDS: LEVOTHYROXINE 100 MCG TAB PO SCH (06:33)
[2017-05-11] MEDS: DESVENLAFAXINE SUCCINATE 50 MG TAB.ER.24H PO SCH (07:47)
[2017-05-11] MEDS: NICOTINE 14MG/24HR PATCH TRANSDERM SCH (07:47)
[2017-05-11] MEDS: IBUPROFEN 800 MG TAB PO SCH ×3 (07:48→21:09)
[2017-05-11] MEDS: amLODIPine 5 MG TAB PO SCH (07:48)
[2017-05-11] MEDS: GABAPENTIN 400 MG CAP PO SCH ×3 (07:48→21:08)
[2017-05-11] MEDS: LORazepam 1 MG TAB PO PRN ×2 (07:51→15:10)
[2017-05-11] MEDS: OXcarbazepine 300 MG TAB PO SCH ×2 (08:10→21:08)
--- NOTE | 2017-05-11 10:58 | P.PN ---
Progress Note - Text Interval History: Patient is a 41-year-old female being seen in coverage for Dr. Mcdaniels, patient states she requested an Ativan last night due to pain on her ribs from CPR as well as racing thoughts which she describes as ruminating about things. Patient reports that she is continuing to have suicidal thoughts but no plans to act on the unit but does continue to have the plan to buy drugs after discharge and take an overdose. She reports that she is eating okay and she did sleep well last evening. Patient states that she continues to feel depressed and notices no change with any of the medication adjustments. Patient reported no side effects from any of the medication. Patient did not attend any groups yesterday. Mental Status: Appearance/Attitude: Patient was found in her room lying in bed and is appropriately dressed and makes good eye contact and is cooperative. Behavior: Patient does not display any psychomotor agitation but appears somewhat slowed this morning. Speech/Language: Patient is only responding to my questions and is not elaborating on them without encouragement, she speaks in a normal tone and volume and is coherent. Thought Process: Patient is goal-directed but limited in her responses was no evidence of circumstantial or tangential thought and no loose associations or flight of ideas. Patient does report racing thoughts which she describes as ruminating about things. Thought Content: Patient denies any auditory or visual hallucinations no delusions or paranoid ideation or elicited. Patient continues to report that she feels depressed, having no interest or energy to do things. Patient reports that she slept well last evening after taking Ativan and her appetite is unchanged. Suicidal/Homicidal Ideation: Patient denies any current suicidal ideation but states once she is discharged she plans to buy drugs and take an overdose. Patient denies any current homicidal ideation. Sensorium/Cognition: Patient is alert and oriented to person, place, and time and her memory is grossly intact. Mood/Affect: Patient's mood remains depressed and her affect is blunted. Insight/Judgement: Patient's insight and judgment are fair. Assessment: Patient's Paxil was discontinued yesterday and the patient continues on her other medications at their current doses and continues to report feeling depressed, plans to take an overdose once she is discharged and states that she spent the day in bed yesterday. Patient reports that the Ativan is the only medication that has helped her ruminating thoughts as well as relieve the pain in her ribs secondary to having CPR. Plan: Patient will continue on her current medications, Paxil was discontinued yesterday patient continues to require hospitalization to stabilize her mood. Patient was encouraged to attend groups and activities today and stay out of bed so that her sleep is better at night.
[2017-05-11] MEDS: traZODone HCL 50 MG TAB PO SCH (21:08)
[2017-05-12] MEDS: LEVOTHYROXINE 100 MCG TAB PO SCH (06:29)
[2017-05-12] MEDS: NICOTINE 14MG/24HR PATCH TRANSDERM SCH (08:29)
[2017-05-12] MEDS: amLODIPine 5 MG TAB PO SCH (08:29)
[2017-05-12] MEDS: OXcarbazepine 300 MG TAB PO SCH ×2 (08:29→21:06)
[2017-05-12] MEDS: GABAPENTIN 400 MG CAP PO SCH ×3 (08:29→21:06)
[2017-05-12] MEDS: DESVENLAFAXINE SUCCINATE 50 MG TAB.ER.24H PO SCH (08:29)
[2017-05-12] MEDS: IBUPROFEN 800 MG TAB PO SCH ×3 (08:29→21:05)
[2017-05-12] MEDS: LORazepam 1 MG TAB PO PRN ×3 (08:33→21:07)
--- NOTE | 2017-05-12 10:07 | P.PN ---
Progress Note - Text Interval history: The patient is found in her room she follows me to an interview room. She reports she does not feel well this morning indicating some upper respiratory tract symptoms. She states she feels "blah". She continues to feel hopeless she continues to have suicidal thoughts that she indicates are "strong". She indicates she would consider killing herself via overdose again. She has no concerns regarding medications she is noting no benefit at this point. We reviewed her medications in detail. She had previously taken Abilify her only concern at that time was possible weight gain. She does feel that it may have helped her mood. She reports no phone calls or visits over the weekend. It appears she's made little effort to arrange discharge placement. Mental status exam: The patient is alert she seated calmly in the chair eye contact is poor. She appears apathetic and withdrawn. She is soft-spoken. She initiates little spontaneous speech but we'll provide answers to questions asked. She indicates her mood is depressed and hopeless. She indicates she continues to have strong suicidal thoughts with a potential plan of overdosing with heroin. She reports having no homicidal ideation she endorses no auditory or visual hallucinations she endorses no specific delusions there is no evidence of psychosis. She does not appear hypomanic or manic. There is no pressured speech she endorses no racing thoughts. She demonstrates mild psychomotor slowing today there is no verbal or physical aggressiveness. Insight and judgment impaired. She remains oriented to person place and date. Plan: Bipolar disorder most recent depressed. We will continue with the Pristiq and Trileptal. These are both knew her medications for her. We need to allow him time to demonstrate efficacy. I will add Abilify 2 mg daily as an augmentation strategy which may help improve mood symptoms quicker. She remains at acute safety risk and requires continued psychiatric hospitalization. Vital signs reviewed. We will continue to monitor for safety and encourage her full participation in the milieu.
[2017-05-12] MEDS: traZODone HCL 50 MG TAB PO SCH (21:05)
[2017-05-13] MEDS: LEVOTHYROXINE 100 MCG TAB PO SCH (06:00)
[2017-05-13] MEDS: NICOTINE 14MG/24HR PATCH TRANSDERM SCH (08:08)
[2017-05-13] MEDS: ARIPiprazole 2 MG TAB PO SCH (08:09)
[2017-05-13] MEDS: IBUPROFEN 800 MG TAB PO SCH ×3 (08:09→20:00)
[2017-05-13] MEDS: GABAPENTIN 400 MG CAP PO SCH ×3 (08:09→20:00)
[2017-05-13] MEDS: DESVENLAFAXINE SUCCINATE 50 MG TAB.ER.24H PO SCH (08:09)
[2017-05-13] MEDS: OXcarbazepine 300 MG TAB PO SCH ×2 (08:09→20:00)
[2017-05-13] MEDS: amLODIPine 5 MG TAB PO SCH (08:09)
[2017-05-13] MEDS: MAGNESIUM HYDROXIDE 2,400 MG/10 ML CUP PO PRN (08:12)
[2017-05-13] MEDS: ACETAMINOPHEN TAB 325 MG TAB PO PRN (08:12)
[2017-05-13] MEDS: LORazepam 1 MG TAB PO PRN ×3 (08:12→20:02)
--- NOTE | 2017-05-13 09:32 | P.PN ---
Progress Note - Text Interval history: The patient is found in the dining room she follows me to an interview room. She reports that she feels depressed she feels hopeless. She was able to speak with her who is in a different psychiatric unit out of area. She states that it is their plan to commit suicide as neither one feel things are getting better. She states that she did call access yesterday and was told she would be placed at [facility] in 5 days however she states social work had differing information. She plans to call access again. The Abilify will be started today. She has no questions or concerns regarding her medication. She states nothing feels better yet. Mental status exam: The patient is an overweight female she seated calmly she continues to report a depressed mood with hopelessness thinking and suicidal ideation. Today she states her and her have decided to commit suicide once they are discharged. She has a dysphoric affect. She appears apathetic during the session. She demonstrates no verbal or physical aggressiveness there are no abnormal involuntary movements. She does not appear hypomanic or manic. There is no report or evidence of hallucinations or specific delusions. Insight and judgment is impaired. Plan: Bipolar disorder depressed: The patient will continue on her current medications the Abilify will be started today. She will call access again regarding inpatient chemical dependency treatment. The patient is not appropriate for discharge at this time. We will monitor for safety and encourage her full participation in the milieu. Vital signs reviewed.
[2017-05-13] MEDS: traZODone HCL 50 MG TAB PO SCH (20:00)
[2017-05-14] MEDS: LEVOTHYROXINE 100 MCG TAB PO SCH (06:24)
[2017-05-14 07:01] VITALS: RESP 18
[2017-05-14] MEDS: NICOTINE 14MG/24HR PATCH TRANSDERM SCH (08:42)
[2017-05-14] MEDS: IBUPROFEN 800 MG TAB PO SCH ×3 (08:43→21:17)
[2017-05-14] MEDS: ARIPiprazole 2 MG TAB PO SCH (08:43)
[2017-05-14] MEDS: amLODIPine 5 MG TAB PO SCH (08:43)
[2017-05-14] MEDS: GABAPENTIN 400 MG CAP PO SCH ×3 (08:43→21:16)
[2017-05-14] MEDS: DESVENLAFAXINE SUCCINATE 50 MG TAB.ER.24H PO SCH (08:43)
[2017-05-14] MEDS: OXcarbazepine 300 MG TAB PO SCH ×2 (08:43→21:17)
[2017-05-14] MEDS: LORazepam 1 MG TAB PO PRN (08:48)
--- NOTE | 2017-05-14 09:05 | P.PN ---
Progress Note - Text Interval history: The patient is found in the hallway she follows me to an interview room. She reports her mood continues to be depressed she continues to have hopelessness thinking. She has been compliant with medications. She states sleep was better last evening it is recorded she slept 7 hours. Appetite is stable. She reports a continued feeling of confusion. She has not yet gotten a inpatient chemical dependency placement yet. She states she will again called today. She has no questions or concerns regarding her medication. The Abilify was initiated yesterday. Mental status exam: The patient is an overweight female she seated calmly eye contact is appropriate she continues to indicate a depressed mood with hopelessness thinking with ongoing suicidal thoughts. She endorses no homicidal ideation. She endorses no auditory or visual hallucinations or specific delusions. She demonstrates no abnormal involuntary movements. She demonstrates no verbal or physical aggressiveness. Insight and judgment limited. She is oriented to person place and date. Affect is bland. Plan: Bipolar depression: She will continue on her current psychotropic medications we will continue to monitor for safety. She is awaiting a placement day at an inpatient chemical dependency treatment center. Vital signs reviewed. We will continue to monitor for safety and encourage her participation in the milieu. I will reduce the available Ativan to just 1 mg once a day as needed. She continues to be in acute safety risk. She requires continued psychiatric hospitalization.
[2017-05-14] MEDS: traZODone HCL 50 MG TAB PO SCH (21:16)
[2017-05-15] MEDS: LEVOTHYROXINE 100 MCG TAB PO SCH (06:20)
[2017-05-15] MEDS: NICOTINE 14MG/24HR PATCH TRANSDERM SCH (08:52)
[2017-05-15] MEDS: DESVENLAFAXINE SUCCINATE 50 MG TAB.ER.24H PO SCH (08:53)
[2017-05-15] MEDS: ARIPiprazole 2 MG TAB PO SCH (08:53)
[2017-05-15] MEDS: GABAPENTIN 400 MG CAP PO SCH ×3 (08:54→21:04)
[2017-05-15] MEDS: IBUPROFEN 800 MG TAB PO SCH ×3 (08:54→21:04)
[2017-05-15] MEDS: OXcarbazepine 300 MG TAB PO SCH ×2 (08:54→20:16)
[2017-05-15] MEDS: amLODIPine 5 MG TAB PO SCH (08:54)
[2017-05-15] MEDS: LORazepam 1 MG TAB PO PRN (08:57)
--- NOTE | 2017-05-15 09:07 | P.PN ---
Progress Note - Text The patient is found in the hallway she follows me to an interview room. She reports that her mood is better today. Her has been released from the hospital apparently he went to an meeting met somebody and secured housing for him and her. She reports that they now have an apartment to rent. She was pleased that the [facility] support was able to get her some clothing. The patient feels that the Abilify is beginning to help her mood she feels less depressed and less hopeless. She states that she was able to sleep last night appetite is stable. It appears that she has been given a placement date for [place] towards the end of this month. She has no concerns regarding her medications. Mental status exam: The patient is an overweight female she is dressed in her own clothing. Eye contact is appropriate speech is fluent spontaneous nonpressured. Hygiene grooming improved. She reports her mood is "better" affect appears less dysphoric and is brighter. She reports no acute suicidal ideation today she feels less hopeless. She endorses no homicidal ideation. She endorses no auditory or visual hallucinations no specific delusions. Insight and judgment improving. She demonstrates no abnormal involuntary movements there is no verbal or physical aggressiveness. She remains oriented to person place and date. Plan: Bipolar disorder most recent depressed: The patient is reporting improvement of mood. She feels the Abilify is helping she is also encouraged that her has found housing. She is disappointed that inpatient chemical dependency treatment isn't for another 2 weeks but she asserts that she will still attend. We will monitor her for safety and encourage her continued participation in the milieu. If she demonstrates continued stability of mood and further progress we will consider discharge in the next 1-2 days.
[2017-05-15] MEDS: traZODone HCL 50 MG TAB PO SCH (20:15)
[2017-05-15] MEDS: MAGNESIUM HYDROXIDE 2,400 MG/10 ML CUP PO PRN (21:04)
[2017-05-16] MEDS: LEVOTHYROXINE 100 MCG TAB PO SCH (06:01)
[2017-05-16 06:55] VITALS: TEMP 97.9
[2017-05-16] MEDS: ACETAMINOPHEN TAB 325 MG TAB PO PRN (07:44)
[2017-05-16] MEDS: LORazepam 1 MG TAB PO PRN (07:44)
[2017-05-16] MEDS: DESVENLAFAXINE SUCCINATE 50 MG TAB.ER.24H PO SCH (09:07)
[2017-05-16] MEDS: NICOTINE 14MG/24HR PATCH TRANSDERM SCH (09:07)
[2017-05-16] MEDS: ARIPiprazole 2 MG TAB PO SCH (09:07)
[2017-05-16] MEDS: GABAPENTIN 400 MG CAP PO SCH (09:07)
[2017-05-16] MEDS: amLODIPine 5 MG TAB PO SCH (09:07)
[2017-05-16] MEDS: OXcarbazepine 300 MG TAB PO SCH (09:08)
[2017-05-16] MEDS: IBUPROFEN 800 MG TAB PO SCH (09:08)
[2017-05-16 09:46] VITALS: BP 139/81; PULSE 90
[2017-05-16 10:00] VITALS: BMI 37.4
--- NOTE | 2017-05-16 10:28 | P.DS ---
Providers Date of admission: 05/04/17 12:42 Expected date of discharge: 05/16/17 Attending physician: Jonathan Mcdaniels Consults: 05/04/17 14:34 Consult Physician Routine Consulting Provider: Rahul Sharma Consult Reason/Comments: H & P and medical care Do you want consulting provider notified?: Yes Primary care physician: Poonam Romero - Discharge Diagnosis(es) (1) Bipolar 1 disorder, depressed, severe Current Visit: Yes Status: Acute Priority: High (2) Opiate dependence Current Visit: Yes Status: Acute Priority: High (3) Cocaine use disorder, mild, abuse Current Visit: Yes Status: Acute Priority: Medium Hospital Course: Brief summary of admission note: This patient is a 41-year-old female who was admitted to the mental health unit through the emergency room for suicidal ideation. The patient reported that 2 days ago she attempted to end her life with a heroin overdose. She was found unconscious by her and resuscitated. Apparently she was discharged in presented to the hospital for admission due to ongoing suicidal thoughts. She reported experiencing daily tearfulness crying spells hopelessness. She felt overwhelmed due to not being able to see her children and she has been homeless. For full details please refer to my psychiatric evaluation dated 11/2016. Summary of hospital course: The patient was admitted to the mental health unit she signed in voluntarily. We reviewed her presenting symptoms and medication options. We decided to initiate a mood stabilizer for her bipolar disorder. She had previously been prescribed Latuda she no longer wanted to use an antipsychotic medication due to side effects. We initiated Trileptal and titrated the dose to 300 mg twice daily. She had been on Paxil for quite some time and 40 mg for depressive and anxiety symptoms. During the course of hospitalization she felt that the Paxil is no longer providing benefit and that medication was transition to Pristiq 50 mg daily. She did experience severe symptoms of depression for several days while on the mental health unit. We augmented the Pristiq with Abilify 2 mg daily. Afterwards she noted a significant improvement of mood. Concurrently her was discharge from a mental health facility and apparently secured housing for them which gave her more hope. She was ultimately amenable to scheduling for inpatient chemical dependency treatment and that is scheduled at [place] 05/29/2017 at 12:15 PM area the patient was maintained on her previously prescribed Neurontin and trazodone. The patient was seen by internal medicine and was started on Synthroid 100 g daily. She demonstrated no aggressive behavior she was cooperative. She has noted a resolution of any acute suicidal ideation her affect is much brighter and she has been participating more in the milieu. Mental status exam: The patient is an overweight female she is dressed in her own clothing hygiene grooming adequate. She has the sides of her head shaved and wears her remaining hair up. Eye contact is appropriate speech is fluent nonspontaneous nonpressured. She reports her mood is much better affect is brighter and appears more euthymic. She denies having any acute suicidal ideation intent or plan she reports having no homicidal ideation intent or plan. She is endorsing no auditory or visual hallucinations she is endorsing no specific delusions. His evidence of psychosis in observing the patient. She endorses no racing thoughts there is no pressured speech there is no agitated behavior. She does not appear hypomanic or manic. She demonstrates no abnormal involuntary movements. She demonstrates no verbal or physical aggressiveness. She remains oriented to person place and date. Insight and judgment have improved. Impressions 1. Bipolar 1 disorder most recent depressed, opiate use disorder, cocaine use disorder 2. Rule out borderline personality disorder traits 3. Hepatitis C, Graves' disease, possible GERD and hyperlipidemia Plan: The patient will be discharged from mental health unit today. She will return residing with her at an apartment that he has secured. She will follow up with [facility] for outpatient services. She will continue on Pristiq 50 mg daily Trileptal 300 mg twice daily Abilify 2 mg daily Neurontin 800 mg 3 times daily trazodone 150 mg at bedtime. She has been placed on Synthroid 100 g by the internal medicine physician. She should follow up with internal medicine upon discharge for routine care. She is scheduled to go to [facility] for inpatient chemical dependency treatment on at 12:15 PM. She strongly encouraged to attend AA or NA meetings daily until then. We discussed that the use of alcohol or any illicit drugs would elevate her safety risk. At this time there is no acute safety risk she is reporting significant improvement of her mood she is endorsing no suicidal ideation intent or plan. She is appropriate for transition outpatient care. She is reminded to return to the hospital if any acute safety concerns. Patient Condition at Discharge: Stable Plan - Discharge Summary New Discharge Prescriptions: New amLODIPine [Norvasc] 5 mg PO DAILY #30 tab ARIPiprazole [Abilify] 2 mg PO DAILY #30 tab Desvenlafaxine Succinate [Pristiq ER] 50 mg PO DAILY #30 tab Levothyroxine Sodium [Synthroid] 100 mcg PO DAILY@0630 #30 tab Nicotine 14Mg/24Hr Patch [Habitrol] 1 patch TRANSDERM DAILY #12 patch OXcarbazepine [Trileptal] 300 mg PO BID #60 tab Continue Omeprazole [PriLOSEC] 20 mg PO DAILY Albuterol Inhaler [Ventolin Hfa Inhaler] 1 - 2 puff INHALATION RT-Q6H PRN PRN Reason: Shortness Of Breath Atorvastatin Calcium [Lipitor] 10 mg PO DAILY #30 Gabapentin [Neurontin] 800 mg PO TID #45 traZODone HCL 150 mg PO HS #30 Discontinued PARoxetine HCL [Paxil] 40 mg PO DAILY Levothyroxine Sodium [Synthroid] 300 mcg PO DAILY Methimazole [Tapazole] 5 mg PO TID Lurasidone [Latuda] 80 mg PO HS Benztropine Mesylate [Cogentin] 1 mg PO BID Discharge Medication List Albuterol Inhaler [Ventolin Hfa Inhaler] 1 - 2 puff INHALATION RT-Q6H PRN [History] Omeprazole [PriLOSEC] 20 mg PO DAILY 05/04/17 [History] ARIPiprazole [Abilify] 2 mg PO DAILY #30 tab 05/16/17 [Rx] Atorvastatin Calcium [Lipitor] 10 mg PO DAILY #30 05/16/17 [Rx] Desvenlafaxine Succinate [Pristiq ER] 50 mg PO DAILY #30 tab 05/16/17 [Rx] Gabapentin [Neurontin] 800 mg PO TID #45 05/16/17 [Rx] Levothyroxine Sodium [Synthroid] 100 mcg PO DAILY@0630 #30 tab 05/16/17 [Rx] Nicotine 14Mg/24Hr Patch [Habitrol] 1 patch TRANSDERM DAILY #12 patch 05/16/17 [ Rx] OXcarbazepine [Trileptal] 300 mg PO BID #60 tab 05/16/17 [Rx] amLODIPine [Norvasc] 5 mg PO DAILY #30 tab 05/16/17 [Rx] traZODone HCL 150 mg PO HS #30 05/16/17 [Rx] Follow up Appointment(s)/Referral(s): [facility] [Outside] - 05/29/17 12:15 pm ([facility] 05/29/17 at 1215 with intake ) [facility] [Outside] - 1 Week (w/ Shey Deal on 05/15/17 @ 10:30am w/ Dr. Eng on 05/21/17 @ 9:50am)
== END 2017-05-16 12:22 | disposition home or self-care (01) | DRG 885 ==
LOC: 3MHU 12:42
PROVIDERS: ADMIT Psychiatry & Neurology Psychiatry; ATTEND Psychiatry & Neurology Psychiatry
DX: F31.4 Bipolar disorder, current episode depressed, severe, without psychotic features (principal); F11.20 Opioid dependence, uncomplicated; R45.851 Suicidal ideations; F14.10 Cocaine abuse, uncomplicated; Z91.5 Personal history of self-harm; B19.20 Unspecified viral hepatitis C without hepatic coma; E03.9 Hypothyroidism, unspecified; I10 Essential (primary) hypertension; G62.9 Polyneuropathy, unspecified; F17.200 Nicotine dependence, unspecified, uncomplicated; F60.3 Borderline personality disorder; E66.3 Overweight; Z79.899 Other long term (current) drug therapy; Z91.410 Personal history of adult physical and sexual abuse; Z59.0 Homelessness; Z91.14 Patient's other noncompliance with medication regimen; Z81.8 Family history of other mental and behavioral disorders; Z88.0 Allergy status to penicillin; Z88.8 Allergy status to other drugs, medicaments and biological substances; Z91.040 Latex allergy status
CPT/HCPCS: 80183; 84436; 84443